=== PATIENT | male | born 1955 | race Caucasian/White ===

== ENCOUNTER → 2018-02-03 10:37 | Outpatient (CLI) | payer MEDICARE, SELFPAY ==
[2018-02-03 14:04] LABS: PSA,Total- Diagnostic 5.38 ng/mL (0.0-4.0)
== END ==
PROVIDERS: Family Provider Internal Medicine; PCP Internal Medicine; Referring Provider Nurse Practitioner Adult Health; Visit Provider Nurse Practitioner Adult Health
DX: R97.20 Elevated prostate specific antigen [PSA] (principal)
CPT/HCPCS: 36415; 84153

== ENCOUNTER → 2018-06-10 09:20 | Outpatient (CLI) | payer MEDICARE, SELFPAY | PROVIDERS: Family Provider Internal Medicine; PCP Internal Medicine; Referring Provider Nurse Practitioner Adult Health; Visit Provider Nurse Practitioner Adult Health | DX: R97.20 Elevated prostate specific antigen [PSA] (principal) | CPT/HCPCS: 36415; 84153 ==

== ENCOUNTER → 2019-06-11 | Outpatient (CLI) | payer MEDICARE, SELFPAY ==
[2019-06-11 18:02] LABS: PSA,Total- Diagnostic 2.56 ng/mL (0.0-4.0)
== END | disposition home or self-care (01) ==
LOC: LAB 15:56
PROVIDERS: PCP Family Medicine; Referring Provider Urology; Visit Provider Urology
DX: R97.20 Elevated prostate specific antigen [PSA] (principal)
CPT/HCPCS: 36415; 84153

== ENCOUNTER → 2022-04-12 | Outpatient (CLI) | payer MEDICARE, SELFPAY ==
--- NOTE | 2022-04-11 | BMB_PTH ---
PATIENT: JUDY GONCALVES LOC: [facility] U#:[id number] AGE/SX: 67/M ROOM: RE04/12/[address]: Dr. Alek Vang DO : 1955 BED: DIS: 04/12/2022 SPEC #: [id number] RECD: 04/12/22 11:51 STATUS: MAURICIO REMark #: [id number] PAOLA: 04/11/22 00:[address]: Alek Vang DEPT: BONE MARROW RECD BY: Tony Johnson ENTERED: 04/12/22 11:51 SP TYPE: BMB OTHR DR: Dr. 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 See comment. SJ:pablo 04/17/2022 COMMENT The flow cytometry study from [facility] shows monoclonal B-cell population with nonspecific phenotype (lambda positive, CD20 positive, CD5 negative and CD10 negative). Cytogenetic and FISH studies are pending. Correlation with clinical, laboratory findings and appropriate follow up are necessary. BONE MARROW STUDY Slides are reviewed. CBC DATE: 04/11/22 WBC 3.67; RBC 2.25; HGB 7.8; HCT 24.1; MCV 107.1; RDW 14.9; PLTS 107,000 SEGS 66%; LYMPHS 26.7%; MONOS 3.3%; EOS 2.7%; BASOS 0.5% PERIPHERAL SMEAR: Submitted. Pancytopenia RBC: Macrocytic anemia WBC: Leukopenia. The WBC count is compatible to as reported above. PLTS: Mildly decreased BONE MARROW ASPIRATE DIFFERENTIAL: 200 cell count. Blasts % (normal 0-2): 0 Promyelocytes % (normal 1-5): 0 Myelocytes and metamyelocytes % (normal 17-41): 15 Bands and Segs % (normal 15-32): 9 Eos % (normal 1-6): 1 Basos % (normal 0-1): 0 Monocytes % (normal 0-4): 0 Erythroid Precursors % (normal 17-35): 12 Lymphocytes % (normal 7-13): 60 Plasma Cells % (normal 0-2): 3 ASPIRATE FINDINGS: Site: Not specified Spicular, Cellular (only one slide) M/E ratio: 2.1 (Normal 1.5-4.0) Megakaryocytes: Present and normal morphology. Erythropoiesis: Normoblastic. Granulopoiesis: Progressive and unremarkable. Comment: Marked increase of small lymphocytes are noted. A few mature plasma cells are also noted. CORE BIOPSY FINDINGS: Site: Not specified Adequacy: Adequate Cellularity: ~70% M/E ratio: Within normal limits. Megakaryocytes: Present and adequate in number. Bony trabeculae: Unremarkable. Granulomas: Absent. Lymphoid aggregate: Present Atypical infiltrate: Present. Comment: IHC shows marked increase of lymphocytes and plasma cells. The lymphocytes comprise about 70% of the total nucleated cell population. Plasma cells comprise about 15-20% of abnormal cell population. 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 ASPIRATE CLOT FINDINGS: Site: Not specified Marrow particles: Rare Cellularity: 70% M/E ratio: Within normal limits. Megakaryocytes: Present and adequate in number. Granulomas: Absent. Lymphoid aggregates: Absent. Atypical infiltrates: Present. Comment: Interstitial infiltrates of small lymphocytes are noted. Lymphocytic infiltrates comprise about 70% of the total nucleated cell population. SPECIAL STAINS WITH MATCHED CONTROLS: Iron: 3-4+ (core biopsy and clot section), atypical or ring sideroblasts are not seen. Reticulin: No significant increase of reticulin fibers is noted. PAS: Highlights myeloid cells and megakaryocytes. BONE MARROW GROSS A - Received is a container labeled with the patient's name and designated bone marrow biopsy core. The specimen consists of multiple fragments of blood clot mixed with fragments of shearer bone measuring in aggregate 1.2 x 0.7 x 0.1 cm. The specimen is totally submitted in one cassette after decalcification. B - Received labeled with the patient's name and designated bone marrow biopsy clot is a specimen that consists of multiple fragments of blood clot measuring in aggregate 2.5 x 2.5 x 0.3 cm. The specimen is totally submitted in one cassette. C - Also received are 7 unstained and 2 peripheral stained slides (including one touch imprint). The unstained slides are submitted for appropriate staining. Also received are 2 green and 2 lilac top tubes which are sent to our reference lab for flow, cytogenetics & MYD88. 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 Please see complete report in e-chart or EMR [place] Red stain with matched control does not reveal Congophilic material in the bone marrow biopsy or the aspirate clot section. Clinical correlation is necessary. AM/mr 11/07/2023
--- NOTE | 2022-04-11 | IMM_PTH ---
PATIENT: JUDY GONCALVES LOC: [facility] U#:[id number] AGE/SX: 67/M ROOM: RE04/12/[address]: Dr. Alek Vang DO : 1955 BED: DIS: 04/12/2022 SPEC #: [id number] RECD: 04/13/22 13:15 STATUS: MAURICIO REQ #: [id number] PAOLA: 04/11/22 00:[address]: Alek Vang DEPT: IMMUNOHISTOCHEMISTRY RECD BY: Joyce Sharma ENTERED: 04/13/22 13:18 SP TYPE: IMMUNO OTHR DR: Dr. Malena Griffith DO Tissues: A - Bone marrow of iliac crest Procedures: BCL-2 (add) BCL-6 (add) CD10 (add) CD138 (add) CD20 (add) CD23 (add) CD3 (add) CD43 (add) CD45 (add) CD5 (add) CD79A (add) CK8 (add) CYCLIN (add) KAPPA (add) KI-67 (add) LAMBDA (add) Pankeratin (initial) PHYSICIAN & [place] [id number] SPECIMEN INFORMATION: Tissue Source: A ? 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 Localization is made via biotin free immunoperoxidase method. Appropriate controls are performed and reacted as expected. Results on target cell population are indicated in the following table: RESULTS: ANTIBODY / CLONE RESULT Block A AE1-3 (AE1/AE3/PCK26) negative CD3 (PS1) negative CD5 (SP10) negative CD10 (56C6) negative CD20 (L26) positive CD23 (1B12) negative CD43 (L60) negative CD45 (RP2/18) positive CD79a (11E3) positive CD138 (B-A38) positive (in plasma cells) BCL-2 (bcl-2/100/D5) positive BCL-6 (YH991D/A8) negative [place] D1/BCL-1 (SP4) negative CK8 (92uqdyH87) negative [place] (polyclonal) negative (in plasma cells) Lambda (polyclonal) positive (in plasma cells) Ki-67 (30-9) positive, low to moderate These tests were developed and their performance characteristics determined by [facility]. They may not have been cleared or approved by the [place]. Food and Drug Administration. The FDA has determined that such clearance or approval is not necessary. The above immunohistochemical/dualISH markers are ordered and reviewed by the Pathologist. INTERPRETATION: A. 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 SJ:pablo 04/17/2022
[2022-04-12 10:12] VITALS: BP 138/65; PULSE 70; RESP 14; TEMP 36.7; O2SAT 98; BMI 30.1
[2022-04-12 10:25] VITALS: BP 114/66; PULSE 66; RESP 16; TEMP 36.9; O2SAT 97
[2022-04-12 11:25] VITALS: BP 119/60; PULSE 63; RESP 16; TEMP 36.6
[2022-04-12 12:22] VITALS: BP 138/75; PULSE 63; RESP 16; TEMP 36.8; O2SAT 99
== END | disposition home or self-care (01) ==
PROVIDERS: PCP Family Medicine; Referring Provider Internal Medicine Hematology & Oncology; Visit Provider Internal Medicine Hematology & Oncology
DX: D64.9 Anemia, unspecified (principal)
CPT/HCPCS: 36430; 86850; 86900; 86901; 86920; 86922; 88305; 88311; 88313; 88341; 88342; J7040; P9016; A4216

== ENCOUNTER → 2022-05-03 | Outpatient (CLI) | payer MEDICARE, SELFPAY ==
[2022-05-03] MEDS: 0.9% NaCl Peripheral Flush Adult/Peds IV (10:06)
[2022-05-03 10:07] VITALS: BP 131/73; PULSE 61; TEMP 36.8; O2SAT 95
[2022-05-03 10:33] VITALS: BP 120/67; PULSE 54; RESP 16; TEMP 36.8
[2022-05-03 11:33] VITALS: BP 133/72; PULSE 59; RESP 16; TEMP 36.7
[2022-05-03 12:26] VITALS: BP 137/77; PULSE 60; TEMP 36.8; O2SAT 99
== END | disposition home or self-care (01) ==
LOC: MEDOUTP 09:50
PROVIDERS: PCP Family Medicine; Referring Provider Internal Medicine Hematology & Oncology; Visit Provider Internal Medicine Hematology & Oncology
DX: D64.9 Anemia, unspecified (principal)
CPT/HCPCS: 36430; 86850; 86900; 86901; 86920; 86922; J7040; J7050; P9016; A4216

== ENCOUNTER → 2022-05-31 | Outpatient (CLI) | payer MEDICARE, SELFPAY ==
[2022-05-31] MEDS: 0.9% NaCl Peripheral Flush Adult/Peds IV (12:45)
[2022-05-31 12:54] VITALS: BP 116/60; PULSE 61; RESP 16; O2SAT 97; BMI 28.7
[2022-05-31 13:21] VITALS: BP 113/69; PULSE 62; RESP 16
[2022-05-31 14:21] VITALS: BP 130/68; PULSE 55; RESP 16; TEMP 36.1; O2SAT 99
[2022-05-31] MEDS: Furosemide 20 MG/2 ML VIAL IV (15:23)
== END | disposition home or self-care (01) ==
LOC: MEDOUTP 12:19
PROVIDERS: PCP Family Medicine; Visit Provider Internal Medicine Hematology & Oncology
DX: Z51.89 Encounter for other specified aftercare (principal); D64.9 Anemia, unspecified
CPT/HCPCS: 36430; 86850; 86900; 86901; 86920; 86922; J7040; P9016; A4216; J1940